=== PATIENT | male | born 1980 | race Caucasian/White ===

== ENCOUNTER 2018-04-14 18:38 | Emergency (ER) | payer SELFPAY, OTHER | END 2018-04-14 21:12 | disposition left against medical advice (07) | LOC: E/R 18:38 | DX: Z53.21 Procedure and treatment not carried out due to patient leaving prior to being seen by health care provider (principal) ==

== ENCOUNTER 2018-12-08 08:17 | Day surgery (SDC) | payer OTHER ==
[2018-12-08] MEDS ORDERED: PROPOFOL 40 ML (10:21)
== END 2018-12-08 14:35 | disposition home or self-care (01) ==
LOC: GIL 08:17
DX: K51.90 Ulcerative colitis, unspecified, without complications (principal); K21.9 Gastro-esophageal reflux disease without esophagitis; K29.60 Other gastritis without bleeding
CPT/HCPCS: 43239; 88305